=== PATIENT | female | born 1995 | race Caucasian/White ===

== ENCOUNTER 2018-09-27 01:15 | Emergency (ER) | payer MEDICAID ==
[~2018-09-27] VITALS: Ht 160 cm; Wt 58.1 kg
[2018-09-27 01:15] VITALS: BP 117/66
--- NOTE | 2018-09-27 01:15 | NUR ---
ASSUMED CARE OF PT AT THIS TIME. C/O RIGHT UPPER DENTAL DENTAL PAIN X 1 DAY. AAOX4 WITH EVEN AND STEADY GAIT; PATIENT STATES PAIN OF 5/10; VSS; PATIENT POSITIONED FOR COMFORT; HOB ELEVATED; BEDRAILS UP X2; BED DOWN. ER MD MADE AWARE OF PT STATUS. WILL CONTINUE TO MONITOR.
--- NOTE | 2018-09-27 01:15 | NUR ---
PATIENT AMBULATED TO ER BED 9.
--- NOTE | 2018-09-27 01:38 | NUR ---
Dr. Watt evaluating patient at bedside.
[2018-09-27] MEDS ORDERED: HYDROcodone/APAP 5/325 MG 1 TAB TAB PO ONE (01:55)
[2018-09-27 02:20] VITALS: BP 112/64
--- NOTE | 2018-09-27 02:20 | NUR ---
Patient discharged with v/s stable. Written and verbal after care instructions given and explained. Patient alert, oriented and verbalized understanding of instructions. Ambulatory with steady gait. All questions addressed prior to discharge. ID band removed. Patient advised to follow up with PMD. Rx of ULTRAM AND KEFLEX given. Patient educated on indication of medication including possible reaction and side effects. Opportunity to ask questions provided and answered.
== END 2018-09-27 02:20 | disposition home or self-care (01) ==
LOC: MED 01:15
DX: L03.211 Cellulitis of face (principal)
CPT/HCPCS: 99283